=== PATIENT | male | born 1960 | race Caucasian/White ===

== ENCOUNTER 2017-09-29 11:55 | Emergency (ER) | payer OTHER ==
[~2017-09-29] VITALS: Ht 175.3 cm; Wt 82.5 kg
[~2017-09-29 11:55] MED LIST: ALBU90OI INH; ASPI81CH; CETI10 PO; CHLO25A; CHLO25A PO; HYDACE5 PO; IBUP800; LITH300C PO; LITHIUM; METR500 PO; NIACIN; OMEP10ER; PENVK250; PENVK500 PO; PRED10 PO; SIMV10 PO
[2017-09-29 12:22] LABS: BASOPHILS ABSOLUTE AUTO 0.05 K/mm3 (0.00-0.23); BASOPHILS PERCENT AUTO 0 % (0-2); EOSINOPHILS ABSOLUTE AUTO 0.08 K/mm3 (0.00-0.68); EOSINOPHILS PERCENT AUTO 1 % (0-6); Hematocrit 47.5 % (37.0-53.0); Hemoglobin 15.8 g/dL (13.5-17.5); IMMATURE GRAN ABSOLUTE AUTO 0.03 K/mm3 (0.00-0.10); IMMATURE GRAN PERCENT AUTO 0 % (0-1); LYMPHOCYTES ABSOLUTE AUTO 1.88 K/mm3 (0.84-5.20); LYMPHOCYTES PERCENT AUTO 15 % (21-46); MONOCYTES ABSOLUTE AUTO 0.68 K/mm3 (0.16-1.47); MONOCYTES PERCENT AUTO 5 % (4-13); Mean Corpuscular HGB 29.9 pg (26.0-34.0); Mean Corpuscular HGB Conc 33.3 g/dL (31.5-36.5); Mean Corpuscular Volume 90 fL (80-100); NEUTROPHILS ABSOLUTE AUTO 9.79 K/mm3 (1.96-9.15); NEUTROPHILS PERCENT AUTO 78 % (41-73); Platelet Count 277 K/mm3 (150-400); RDW Coefficient Variation 12.6 % (11.7-14.2); RDW Standard Deviation 41.8 fL (35.1-46.3); Red Blood Cell Count 5.28 M/mm3 (4.30-5.90); White Blood Cell Count 12.51 K/mm3 (4.00-11.30)
[2017-09-29 12:50] LABS: Alanine Aminotransfer (ALT/SGP 48 U/L (12-78); Albumin, Blood 4.3 g/dL (3.4-5.0); Albumin/Globulin Ratio 1.3 (0.8-1.8); Alk Phos 60 U/L (50-136); Anion Gap 8 mmol/L (6-16); Aspartate Aminotrans (AST/SGOT 28 U/L (12-37); Bilirubin, Total 1.1 mg/dL (0.1-1.0); Blood Urea Nitrogen 12 mg/dL (8-24); Bun/Creatinine Ratio 14.5 (12.0-20.0); CO2, Blood 24 mmol/L (21-32); Calcium, Blood 9.1 mg/dL (8.5-10.1); Chloride, Blood 105 mmol/L (98-108); Creatinine, Blood 0.83 mg/dL (0.60-1.20); Ethanol (Alcohol), Blood, Med <3 mg/dL; Globulin, Blood 3.2 g/dL (2.2-4.0); Glomerular Filtration Rate >60 (60-); Glucose, Blood 99 mg/dL (70-99); Potassium, Blood 4.2 mmol/L (3.5-5.5); Salicylate <1.7 mg/dL (2.8-20.0); Sodium, Blood 137 mmol/L (136-145); Thyroxine (T4) 10.2 ug/dL (4.5-12.1); Total Protein, Blood 7.5 g/dL (6.4-8.2)
[2017-09-29 12:55] LABS: Thyroid Stimulating Hormone 0.503 uIU/mL (0.360-4.800)
[2017-09-29 13:00] LABS: Acetaminophen, Random <2.0 ug/mL (10.0-30.0)
[2017-09-29] MEDS ORDERED: Omeprazole20 M1 PO (13:48)
[2017-09-29] MEDS ORDERED: RISP1 PO (16:51)
== END 2017-09-29 17:00 | disposition home or self-care (01) ==
LOC: ER 11:55
PROVIDERS: Psychiatry & Neurology Psychiatry
DX: F31.9 Bipolar disorder, unspecified (principal); Z79.899 Other long term (current) drug therapy; Z87.891 Personal history of nicotine dependence
CPT/HCPCS: 36415; 80053; 84436; 84443; 85025; 99284; G0480; Q3014